=== PATIENT | male | born 1960 | race Caucasian/White ===

== ENCOUNTER 2018-12-02 17:23 | Emergency (ER) | payer OTHER ==
[~2018-12-02] VITALS: Ht 180.3 cm; Wt 90.7 kg
[2018-12-02] MEDS ORDERED: IBUPROFEN 600600 M1 PO (19:00)
[2018-12-02] MEDS ORDERED: ROBAXIN 750 MG750 M1 PO (19:00)
[2018-12-02 19:10] VITALS: BP 120/76
== END 2018-12-02 19:10 | disposition home or self-care (01) ==
LOC: ER 17:23
DX: S13.4XXA Sprain of ligaments of cervical spine, initial encounter (principal); R20.2 Paresthesia of skin; K21.9 Gastro-esophageal reflux disease without esophagitis; X58.XXXA Exposure to other specified factors, initial encounter; Y93.89 Activity, other specified; Y92.89 Other specified places as the place of occurrence of the external cause; Y99.8 Other external cause status